=== PATIENT | female | born 1995 | race African-American/Black ===

== ENCOUNTER 2019-06-09 06:13 | Emergency (ER) | payer OTHER ==
[~2019-06-09] VITALS: Ht 160 cm; Wt 65.8 kg
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
[2019-06-09] MEDS ORDERED: MORPHINE SULFATE INJ 2 MG/ML DISP.SYRIN IV ONE (06:30)
[2019-06-09] MEDS ORDERED: MORPHINE SULFATE INJ 2 MG/ML DISP.SYRIN ONE (06:47)
--- NOTE | 2019-06-09 07:41 | NUR ---
wheeled patient to x-ray.
--- NOTE | 2019-06-09 08:01 | NUR ---
PT IS BACK FROM THE RADIOLOGY.
[2019-06-09 08:29] VITALS: BP 135/78
--- NOTE | 2019-06-09 08:29 | NUR ---
Patient discharged to home in stable condition. Written and verbal after care instructions given. Patient verbalizes understanding of instruction.
== END 2019-06-09 08:46 | disposition home or self-care (01) ==
LOC: ER 06:14
DX: S52.591A Other fractures of lower end of right radius, initial encounter for closed fracture (principal); M79.652 Pain in left thigh; M25.532 Pain in left wrist; R51 Headache; J45.909 Unspecified asthma, uncomplicated; V03.99XA Pedestrian with other conveyance injured in collision with car, pick-up truck or van, unspecified whether traffic or nontraffic accident, initial encounter; Y93.89 Activity, other specified; Y92.488 Other paved roadways as the place of occurrence of the external cause; Y99.8 Other external cause status
CPT/HCPCS: 29125; 70450; 71045; 73090; 73110; 73552; 84703; 96374; 99284; J2270